=== PATIENT | male | born 1970 | race American Indian/Alaskan Native ===

== ENCOUNTER 2020-12-11 04:28 | Emergency (ER) | payer SELFPAY ==
[2020-12-11 04:56] VITALS: BP 148/87
[2020-12-11] MEDS ORDERED: COLCHICINE 0.6 MG TAB PO ONE (04:57)
[2020-12-11] MEDS ORDERED: predniSONE 20 MG TAB PO ONE (04:57)
--- NOTE | 2020-12-11 05:02 | Emergency Department Report ---
ED General Adult HPI - General Stated complaint: GOUT FLARE IN RT TOE Time Seen by Provider: 12/11/20 04:54 Source: patient, RN notes reviewed Limitations: No Limitations - History of Present Illness Initial comments: Patient 50-year-old -Tong[place] male with a history of gout right toe. Patient presents with pain swelling the same. Patient denies fall injury or trauma. Patient advises being out of colchicine and allopurinol. Patient does have a PCP however could not see PCP today. Pain described as 5/10 aching and soreness. Pain is exacerbated by ambulation palpation and movement. There is been no fevers no chills. - Related Data Previous Rx's Medication Instructions Recorded Last Taken Type HYDROcodone/APAP 5-325 [[place] 1 - 2 each PO Q6HR PRN #20 tablet 12/27/13 Unknown Rx 5/325 mg] Indomethacin 50 mg PO Q8H #40 capsule 12/27/13 Unknown Rx Acetaminophen/Codeine [Tylenol #3] 1 tab PO Q6H PRN #20 tab 04/20/15 Unknown Rx Desoximetasone [Topicort] 1 applicatio TP BID #60 gel..gram. 04/20/15 Unknown Rx Ibuprofen [Motrin] 600 mg PO Q8H PRN #50 tablet 04/20/15 Unknown Rx Sulfamethoxazole/Trimethoprim 1 each PO BID #20 tablet 04/20/15 Unknown Rx [Bactrim Ds] predniSONE [Deltasone] 40 mg PO TID #10 tab 04/20/15 Unknown Rx Colchicine 0.6 mg PO DAILY #10 tablet 07/10/15 Unknown Rx Hydrocortisone 1% [Hydrocortisone 1 applicatio TP TID #1 tube 07/10/15 Unknown Rx 1% CREAM] allopurinoL [Zyloprim] 100 mg PO QDAY #30 tablet 07/10/15 Unknown Rx predniSONE 10 mg PO .TAPER #21 tab 07/10/15 Unknown Rx traMADoL [Ultram 50 MG tab] 50 mg PO Q6HR PRN #20 tablet 07/10/15 Unknown Rx Colchicine 0.6 mg PO BID 7 Days #14 capsule 12/11/20 Unknown Rx predniSONE [Deltasone] 40 mg PO QDAY 5 Days #10 tab 12/11/20 Unknown Rx Allergies Allergy/AdvReac Type Severity Reaction Status Date / Time shellfish derived Allergy Anaphylaxis Verified 08/25/16 11:03 ED Review of Systems ROS: Stated complaint: GOUT FLARE IN RT TOE Other details as noted in HPI Constitutional: denies: chills, fever Eyes: denies: eye pain, eye discharge, vision change ENT: denies: ear pain, throat pain Respiratory: denies: cough, shortness of breath, wheezing Cardiovascular: denies: chest pain, palpitations Endocrine: no symptoms reported Gastrointestinal: denies: abdominal pain, nausea, diarrhea Genitourinary: denies: urgency, dysuria Musculoskeletal: arthralgia, other (right great toe pain swelling ) Skin: denies: rash, lesions Neurological: denies: headache, weakness, paresthesias Psychiatric: denies: anxiety, depression Hematological/Lymphatic: denies: easy bleeding, easy bruising ED Past Medical Hx - Past Medical History Additional medical history: Gout. ECZEMA. OBESITY - Surgical History Additional Surgical History: abd hernia repair - Social History Smoking Status: Former Smoker Substance Use Type: Alcohol - Medications Home Medications: Home Medications Medication Instructions Recorded Confirmed Last Taken Type HYDROcodone/APAP 5-325 [[place] 1 - 2 each PO Q6HR PRN #20 tablet 12/27/13 Unknown Rx 5/325 mg] Indomethacin 50 mg PO Q8H #40 capsule 12/27/13 Unknown Rx Acetaminophen/Codeine [Tylenol #3] 1 tab PO Q6H PRN #20 tab 04/20/15 Unknown Rx Desoximetasone [Topicort] 1 applicatio TP BID #60 gel..gram. 04/20/15 Unknown Rx Ibuprofen [Motrin] 600 mg PO Q8H PRN #50 tablet 04/20/15 Unknown Rx Sulfamethoxazole/Trimethoprim 1 each PO BID #20 tablet 04/20/15 Unknown Rx [Bactrim Ds] predniSONE [Deltasone] 40 mg PO TID #10 tab 04/20/15 Unknown Rx Colchicine 0.6 mg PO DAILY #10 tablet 07/10/15 Unknown Rx Hydrocortisone 1% [Hydrocortisone 1 applicatio TP TID #1 tube 07/10/15 Unknown Rx 1% CREAM] allopurinoL [Zyloprim] 100 mg PO QDAY #30 tablet 07/10/15 Unknown Rx predniSONE 10 mg PO .TAPER #21 tab 07/10/15 Unknown Rx traMADoL [Ultram 50 MG tab] 50 mg PO Q6HR PRN #20 tablet 07/10/15 Unknown Rx Colchicine 0.6 mg PO BID 7 Days #14 capsule 12/11/20 Unknown Rx predniSONE [Deltasone] 40 mg PO QDAY 5 Days #10 tab 12/11/20 Unknown Rx ED Physical Exam - General General appearance: alert, in no apparent distress - Head Head exam: Present: atraumatic, normocephalic - Eye Eye exam: Present: normal appearance, EOMI Pupils: Present: normal accommodation - ENT ENT exam: Present: mucous membranes moist - Neck Neck exam: Present: normal inspection - Respiratory Respiratory exam: Present: normal lung sounds bilaterally. Absent: respiratory distress, wheezes - Cardiovascular Cardiovascular Exam: Present: regular rate, normal rhythm, normal heart sounds. Absent: systolic murmur, diastolic murmur, rubs, gallop - GI/Abdominal GI/Abdominal exam: Present: soft, normal bowel sounds. Absent: distended, tenderness - Rectal Rectal exam: Present: deferred - Extremities Exam Extremities exam: Present: normal inspection, full ROM, tenderness (right great toe ) - Expanded Lower Extremity Exam Right Foot/Toe exam: Present: full ROM, tenderness (right great toe), swelling. Absent: abrasion, laceration, ecchymosis, deformity, crepidus, dislocation, erythema, amputation, puncture wound, foreign body, calcaneal tenderness, tenderness at base of 5th metatarsal, nail avulsion, subungual hematoma Neuro vascular tendon exam: Absent: pulse deficit Gait: Positive: observed and limited by pain - Back Exam Back exam: Present: normal inspection - Neurological Exam Neurological exam: Present: alert, oriented X3, CN II-XII intact, normal gait - Psychiatric Psychiatric exam: Present: normal affect, normal mood - Skin Skin exam: Present: warm, dry, intact, normal color. Absent: rash ED Course Vital Signs 12/11/20 04:33 Temperature 98.2 F Pulse Rate 86 Respiratory 18 Rate Blood Pressure 148/87 O2 Sat by Pulse 97 Oximetry ED Medical Decision Making - Medical Decision Making There is a gout exacerbation plan prednisone short burst, patient will see PCP in 2 days for allopurinol refill. Patient will be DC'd home in stable condition at this time. Critical care attestation.: If time is entered above; I have spent that time in minutes in the direct care of this critically ill patient, excluding procedure time. ED Disposition Clinical Impression: Exacerbation of gout Disposition: DC-01 TO HOME OR SELFCARE Is pt being admited?: No Does the pt Need Aspirin: No Condition: Stable Instructions: Low-Purine Eating Plan Prescriptions: Colchicine 0.6 mg PO BID 7 Days #14 capsule predniSONE [Deltasone] 40 mg PO QDAY 5 Days #10 tab Referrals: SONIA BARNES MD [Staff Physician] - 3-5 Days Forms: Work/School Release Form(ED) Time of Disposition: 05:05
== END 2020-12-11 05:41 | disposition home or self-care (01) ==
LOC: ED 04:28
DX: M10.9 Gout, unspecified (principal); Z87.891 Personal history of nicotine dependence; Z79.899 Other long term (current) drug therapy; Z91.013 Allergy to seafood
CPT/HCPCS: 99282; J7512

== ENCOUNTER 2021-01-24 07:19 | Emergency (ER) | payer SELFPAY ==
--- NOTE | 2021-01-24 08:29 | XRay Report ---
LEFT KNEE 3 VIEW(S) INDICATION / CLINICAL INFORMATION: fall. left knee injury COMPARISON: None available. FINDINGS: BONES / JOINT(S): No acute fracture or subluxation. Mild medial compartment degenerative arthrosis. SOFT TISSUES: Small joint effusion. ADDITIONAL FINDINGS: None. Signer Name: Elvis Francis MD Signed: 01/24/2021 8:25 AM Workstation Name: [email or web address]
[2021-01-24] MEDS ORDERED: IBUPROFEN 800 MG TAB PO ONE (08:38)
--- NOTE | 2021-01-24 08:43 | Emergency Department Report ---
ED Lower Extremity HPI - General Chief Complaint: Extremity Injury, Lower Stated Complaint: KNEE PAIN Source: patient Mode of arrival: Ambulatory Limitations: No Limitations - History of Present Illness Initial Comments: 50-year-old obese male presents to the emergency room stating that yesterday he stepped down from his ladder missed a step injuring his left knee he is complai andrews of left knee pain. Patient states he used ice pack with no improvement he did not take any medication at home. he denies any additional injuries. His past medical history consist of gout eczema,surgical history of abdominal hernia. Patient in no acute distress Injury: Knee: Left (paim) Place: home Improves With: nothing Worsens With: weight bearing, movement Context: other (Missed stepped) Associated Symptoms: ambulatory Treatments Prior to Arrival: cold therapy - Related Data Previous Rx's Medication Instructions Recorded Last Taken Type HYDROcodone/APAP 5-325 [[place] 1 - 2 each PO Q6HR PRN #20 tablet 12/27/13 Unknown Rx 5/325 mg] Indomethacin 50 mg PO Q8H #40 capsule 12/27/13 Unknown Rx Acetaminophen/Codeine [Tylenol #3] 1 tab PO Q6H PRN #20 tab 04/20/15 Unknown Rx Desoximetasone [Topicort] 1 applicatio TP BID #60 gel..gram. 04/20/15 Unknown Rx Ibuprofen [Motrin] 600 mg PO Q8H PRN #50 tablet 04/20/15 Unknown Rx Sulfamethoxazole/Trimethoprim 1 each PO BID #20 tablet 04/20/15 Unknown Rx [Bactrim Ds] predniSONE [Deltasone] 40 mg PO TID #10 tab 04/20/15 Unknown Rx Colchicine 0.6 mg PO DAILY #10 tablet 07/10/15 Unknown Rx Hydrocortisone 1% [Hydrocortisone 1 applicatio TP TID #1 tube 07/10/15 Unknown Rx 1% CREAM] allopurinoL [Zyloprim] 100 mg PO QDAY #30 tablet 07/10/15 Unknown Rx predniSONE 10 mg PO .TAPER #21 tab 07/10/15 Unknown Rx traMADoL [Ultram 50 MG tab] 50 mg PO Q6HR PRN #20 tablet 07/10/15 Unknown Rx Colchicine 0.6 mg PO BID 7 Days #14 capsule 12/11/20 Unknown Rx predniSONE [Deltasone] 40 mg PO QDAY 5 Days #10 tab 12/11/20 Unknown Rx Ibuprofen [Motrin] 600 mg PO Q8H PRN #20 tablet 01/24/21 Unknown Rx Allergies Allergy/AdvReac Type Severity Reaction Status Date / Time shellfish derived Allergy Anaphylaxis Verified 08/25/16 11:03 ED Review of Systems ROS: Stated complaint: KNEE PAIN Other details as noted in HPI Comment: All other systems reviewed and negative Constitutional: denies: chills, fever ENT: denies: ear pain, throat pain, dental pain, hearing loss Respiratory: denies: cough Cardiovascular: denies: chest pain, palpitations, dyspnea on exertion, edema Endocrine: denies: excessive sweating, intolerance to cold Gastrointestinal: denies: abdominal pain, nausea, vomiting Genitourinary: denies: dysuria Musculoskeletal: other (Left knee pain) Skin: denies: rash, lesions, change in color, change in hair/nails Neurological: denies: headache, weakness Psychiatric: denies: anxiety, depression ED Past Medical Hx - Past Medical History Previous Medical History?: Yes Additional medical history: Gout. ECZEMA. OBESITY - Surgical History Past Surgical History?: Yes Additional Surgical History: abd hernia repair - Social History Smoking Status: Current Every Day Smoker Substance Use Type: Alcohol, Prescribed - Medications Home Medications: Home Medications Medication Instructions Recorded Confirmed Last Taken Type HYDROcodone/APAP 5-325 [[place] 1 - 2 each PO Q6HR PRN #20 tablet 12/27/13 Unknown Rx 5/325 mg] Indomethacin 50 mg PO Q8H #40 capsule 12/27/13 Unknown Rx Acetaminophen/Codeine [Tylenol #3] 1 tab PO Q6H PRN #20 tab 04/20/15 Unknown Rx Desoximetasone [Topicort] 1 applicatio TP BID #60 gel..gram. 04/20/15 Unknown Rx Ibuprofen [Motrin] 600 mg PO Q8H PRN #50 tablet 04/20/15 Unknown Rx Sulfamethoxazole/Trimethoprim 1 each PO BID #20 tablet 04/20/15 Unknown Rx [Bactrim Ds] predniSONE [Deltasone] 40 mg PO TID #10 tab 04/20/15 Unknown Rx Colchicine 0.6 mg PO DAILY #10 tablet 07/10/15 Unknown Rx Hydrocortisone 1% [Hydrocortisone 1 applicatio TP TID #1 tube 07/10/15 Unknown Rx 1% CREAM] allopurinoL [Zyloprim] 100 mg PO QDAY #30 tablet 07/10/15 Unknown Rx predniSONE 10 mg PO .TAPER #21 tab 07/10/15 Unknown Rx traMADoL [Ultram 50 MG tab] 50 mg PO Q6HR PRN #20 tablet 07/10/15 Unknown Rx Colchicine 0.6 mg PO BID 7 Days #14 capsule 12/11/20 Unknown Rx predniSONE [Deltasone] 40 mg PO QDAY 5 Days #10 tab 12/11/20 Unknown Rx Ibuprofen [Motrin] 600 mg PO Q8H PRN #20 tablet 01/24/21 Unknown Rx ED Physical Exam - General Limitations: No Limitations General appearance: alert, in no apparent distress - Head Head exam: Present: atraumatic - Eye Eye exam: Present: normal appearance - ENT ENT exam: Present: normal exam - Neck Neck exam: Present: normal inspection - Respiratory Respiratory exam: Present: normal lung sounds bilaterally - Cardiovascular Cardiovascular Exam: Present: regular rate, normal heart sounds - Extremities Exam Extremities exam: Present: normal inspection, tenderness (Tenderness with palpation over anterior knee distal pulses intact). Absent: full ROM, pedal edema, joint swelling, calf tenderness - Neurological Exam Neurological exam: Present: alert, oriented X3 - Psychiatric Psychiatric exam: Present: normal affect ED Course Vital Signs 01/24/21 07:25 Temperature 98.2 F Pulse Rate 80 Respiratory 20 Rate Blood Pressure 134/84 O2 Sat by Pulse 96 Oximetry - Reevaluation(s) Reevaluation #1: 01/24/21 08:45 X-ray results reviewed with the patient no acute fracture or dislocation patient in no acute distress follow-up plan discussed with patient ED Lower Extremity MDM - Radiology Data Radiology results: report reviewed Fluoro Time In Minutes: LEFT KNEE 3 VIEW(S) INDICATION / CLINICAL INFORMATION: fall. left knee injury COMPARISON: None available. FINDINGS: BONES / JOINT(S): No acute fracture or subluxation. Mild medial compartment degenerative arthrosis. SOFT TISSUES: Small joint effusion. ADDITIONAL FINDINGS: None. - Medical Decision Making 50-year-old male presents to the emergency room with complaint of left knee pain after missing his step of the ladder yesterday morning. He denied any other injuries or falls or trauma on examination his left knee has no swelling no bruising skins intact no deformity. There is tenderness over the anterior knee with palpation. Distal pulses are intact. X-ray results discussed with patient. I also discussed with patient additional follow-up with orthopedic doctor if he continued pain or inability to walk or any worsening symptoms to further evaluate for any tendon injury. Patient agrees with plan of care to be discharged home rice instructions, Darren wrap for support ,NSAIDs for pain management and follow-up with orthopedist - Differential Diagnosis Knee sprain knee strain Critical care attestation.: If time is entered above; I have spent that time in minutes in the direct care of this critically ill patient, excluding procedure time. ED Disposition Clinical Impression: Strain of left knee Qualifiers: Encounter type: initial encounter Qualified Code(s): S86.912A - Strain of unspecified muscle(s) and tendon(s) at lower leg level, left leg, initial encounter Disposition: TO HOME OR SELFCARE Is pt being admited?: No Does the pt Need Aspirin: No Condition: Stable Instructions: Muscle Strain, [id number] Additional Instructions: Rest ice elevate and compression to the left knee. Take ibuprofen 600 mg as prescribed for pain. Follow-up with your PCP or with Dr. Padilla if no improvement or ongoing symptoms or worsening worsening symptoms Prescriptions: Ibuprofen [Motrin] 600 mg PO Q8H PRN #20 tablet PRN Reason: Pain Referrals: PRIMARY CAREMD [Primary Care Provider] - 3-5 Days TOMER PADILLA MD [Staff Physician] - 3-5 Days Forms: Work/School Release Form Time of Disposition: 08:52
[2021-01-24 08:52] VITALS: BP 145/85
== END 2021-01-24 09:07 | disposition home or self-care (01) ==
LOC: ED 07:19
DX: S86.912A Strain of unspecified muscle(s) and tendon(s) at lower leg level, left leg, initial encounter (principal); F17.200 Nicotine dependence, unspecified, uncomplicated; E66.9 Obesity, unspecified; M10.9 Gout, unspecified; Z98.890 Other specified postprocedural states; Z91.013 Allergy to seafood; Z79.899 Other long term (current) drug therapy; W11.XXXA Fall on and from ladder, initial encounter; Y93.89 Activity, other specified; Y92.239 Unspecified place in hospital as the place of occurrence of the external cause; Y99.8 Other external cause status

== ENCOUNTER 2021-11-13 01:23 | Emergency (ER) | payer SELFPAY ==
--- NOTE | 2021-11-13 07:42 | Emergency Department Report ---
ED Extremity Problem HPI - General Chief complaint: Extremity Injury, Lower Stated complaint: Gout flare-up Source: patient Mode of arrival: Ambulatory Limitations: No Limitations - History of Present Illness Initial comments: 51-year-old male with a past medical history of gout presents to the ER today with complaints of a flareup to his left great toe. Onset last night. Patient thinks that it may have been triggered by him eating red meat and drinking alcohol over the holidays. He states that he used to be on allopurinol, but he has not been on it "in a while". He denies any known injury. He reports pain on palpation and movement of the great toe. He reports no bruising, erythema or any other symptoms at this time. MD Complaint: joint swelling, joint paint, other (Gout flare) -: Last night Severity scale (0 -10): 10 - Related Data Previous Rx's Medication Instructions Recorded Last Taken Type Acetaminophen/Codeine [Tylenol 1 tab PO Q4HR PRN #12 tablet 11/13/21 Unknown Rx /Codeine # 3 tab] allopurinoL [Zyloprim] 100 mg PO BID #60 tablet 11/13/21 Unknown Rx methylPREDNISolone [Medrol 4MG 4 mg PO DAILY #1 pack 11/13/21 Unknown Rx DOSEPAK (21 tabs)] Allergies Allergy/AdvReac Type Severity Reaction Status Date / Time shellfish derived Allergy Anaphylaxis Verified 08/25/16 11:03 ED Review of Systems ROS: Stated complaint: Gout flare-up Other details as noted in HPI Comment: All other systems reviewed and negative Musculoskeletal: joint swelling, arthralgia ED Past Medical Hx - Past Medical History Previous Medical History?: Yes Additional medical history: Gout. ECZEMA. OBESITY - Surgical History Past Surgical History?: Yes Additional Surgical History: abd hernia repair - Social History Smoking Status: Current Every Day Smoker Substance Use Type: Alcohol, Prescribed - Medications Home Medications: Home Medications Medication Instructions Recorded Confirmed Last Taken Type Acetaminophen/Codeine [Tylenol 1 tab PO Q4HR PRN #12 tablet 11/13/21 Unknown Rx /Codeine # 3 tab] allopurinoL [Zyloprim] 100 mg PO BID #60 tablet 11/13/21 Unknown Rx methylPREDNISolone [Medrol 4MG 4 mg PO DAILY #1 pack 11/13/21 Unknown Rx DOSEPAK (21 tabs)] ED Physical Exam - General Limitations: No Limitations General appearance: alert, in no apparent distress - Head Head exam: Present: atraumatic, normocephalic, normal inspection - Eye Eye exam: Present: normal appearance, PERRL, EOMI Pupils: Present: normal accommodation - Respiratory Respiratory exam: Present: normal lung sounds bilaterally. Absent: respiratory distress, wheezes, rales, rhonchi - Cardiovascular Cardiovascular Exam: Present: regular rate, normal rhythm, normal heart sounds - Extremities Exam Extremities exam: Present: full ROM, tenderness (Exquisite tenderness to palpation to the first MTP joint of the left foot.), normal capillary refill, joint swelling (Mild swelling noted to the first MTP joint of the left foot.), other (No apparent erythema but there is slight warmth along the MTP joint, the first one of the left foot.). Absent: pedal edema - Neurological Exam Neurological exam: Present: alert, oriented X3, CN II-XII intact, normal gait - Psychiatric Psychiatric exam: Present: normal affect, normal mood - Skin Skin exam: Present: intact ED Course Vital Signs 11/13/21 11/13/21 11/13/21 04:24 08:12 08:26 Temperature 98.4 F 98.4 F Pulse Rate 67 75 Respiratory 18 18 20 Rate Blood Pressure 172/101 145/92 [Right] O2 Sat by Pulse 99 99 Oximetry Critical care attestation.: If time is entered above; I have spent that time in minutes in the direct care of this critically ill patient, excluding procedure time. ED Disposition Clinical Impression: Acute gout Disposition: 01 HOME / SELF CARE / HOMELESS Is pt being admited?: No Does the pt Need Aspirin: No Condition: Stable Instructions: Low-Purine Eating Plan Additional Instructions: I recommend that you take the prednisone, and the Tylenol threes as prescribed. After your flareup subsides, I recommend that you start taking allopurinol. Follow-up with your primary care doctor. Return to the ER if your symptoms worsens or changes in any way. Prescriptions: methylPREDNISolone [Medrol 4MG DOSEPAK (21 tabs)] 4 mg PO DAILY #1 pack Acetaminophen/Codeine [Tylenol /Codeine # 3 tab] 1 tab PO Q4HR PRN #12 tablet PRN Reason: Pain allopurinoL [Zyloprim] 100 mg PO BID #60 tablet Referrals: PRIMARY CARE, [Primary Care Provider] - 3-5 Days ODEMUYIWA,ABDULFATAI O, MD [Staff Physician] - 3-5 Days Forms: Work/School Release Form(ED) Time of Disposition: 07:43
[2021-11-13] MEDS ORDERED: dexAMETHasone 20 MG/5 ML VIAL IM ONE (07:44)
[2021-11-13] MEDS ORDERED: KETOROLAC 60 MG/2 ML INJ IM ONE (07:44)
[2021-11-13 08:13] VITALS: BP 145/92
== END 2021-11-13 08:33 | disposition home or self-care (01) ==
LOC: ED 01:23
DX: M10.9 Gout, unspecified (principal); F17.200 Nicotine dependence, unspecified, uncomplicated
CPT/HCPCS: 96372; 99282; J1100; J1885

== ENCOUNTER 2022-06-27 08:27 | Emergency (ER) | payer SELFPAY ==
[2022-06-27 08:53] VITALS: BP 129/88
[2022-06-27] MEDS ORDERED: dexAMETHasone 20 MG/5 ML VIAL IM ONE (10:24)
--- NOTE | 2022-06-27 10:29 | Emergency Department Report ---
ED Rash HPI - HPI Chief Complaint: Extremity Problem,Nontraumatic Stated Complaint: LUMP ON WRIST, BAD EZCENNA FLARE ALL OVER BODY Time Seen by Provider: 06/27/22 10:22 Duration: >1week Location: Head, Neck, Chest, Back, Abdomen, Upper Extremities, Lower Extremities Suspected Cause: Other (Stress) Rash Symptoms: Yes Itching, No Facial Swelling, No Tongue/Oral Swelling, No Breathing Difficulties, No Choking Sensation, No Wheezing/Dyspnea, No Peeling, No Blistering, No Fever, No Lightheaded, No Malaise, No Myalgias Severity: moderate Other History: 51-year-old male with history of eczema presenting with generalized eczema flare. Patient reports that symptoms started little over a week ago, progressively gotten worse. States he thinks his triggers as a result of stress, and environment. No fever, no nausea vomiting, no chest pain, no headache, no dizziness, no vision changes, ED Review of Systems ROS: Stated complaint: LUMP ON WRIST, BAD EZCENNA FLARE ALL OVER BODY Other details as noted in HPI Constitutional: no symptoms reported Eyes: as per HPI Respiratory: denies: cough, orthopnea Cardiovascular: denies: chest pain, palpitations Endocrine: denies: flushing, intolerance to cold, intolerance to heat Gastrointestinal: denies: abdominal pain, nausea, vomiting Musculoskeletal: denies: back pain Skin: rash, lesions, pruritus Neurological: denies: headache, weakness, numbness, paresthesias ED Past Medical Hx - Past Medical History Previous Medical History?: Yes Additional medical history: Gout. ECZEMA. OBESITY - Surgical History Additional Surgical History: abd hernia repair - Social History Smoking Status: Current Every Day Smoker Substance Use Type: Alcohol, Prescribed - Medications Home Medications: Home Medications Medication Instructions Recorded Confirmed Last Taken Type Acetaminophen/Codeine [Tylenol 1 tab PO Q4HR PRN #12 tablet 11/13/21 Unknown Rx /Codeine # 3 tab] allopurinoL [Zyloprim] 100 mg PO BID #60 tablet 11/13/21 Unknown Rx Triamcinolone Acetonide 120 ml TP BID #1 06/27/22 Unknown Rx [Triamcinolone 0.1% LOTION] methylPREDNISolone [Medrol 4MG 4 mg PO DAILY #1 pack 06/27/22 Unknown Rx DOSEPAK (21 tabs)] Rash Exam - Exam General: Vital signs noted. No distress. Alert and acting appropriately. Lungs clear bilaterally, patient has diffuse lichenified skin lesions with areas of excoriation to his scalp, neck, trunk upper lower extremities HEENT: No Periorbital Edema, No Conjuctival Injection, No Chemosis, No Perioral Edema, No Tongue Edema, No Uvular Edema, No Compromised Airway, No Drooling Lungs: Yes Good Air Exchange, No Wheezes, No Ronchi, No Stridor, No Cough, No Labored Respirations, No Retractions, No Use of Accessory Muscles, No Other Abnormal Lung Sounds Heart: Yes Regular, No Murmur Skin: Yes Excoriations, Yes Erythema, No Urticarial Rash, No Maculopapular Rash, No Morbilliform rash, No Bulla(e), No Weeping, No Tenderness, No Edema, No Encrustations, No Other ED Course Vital Signs 06/27/22 08:48 Temperature 98.4 F Pulse Rate 74 Respiratory 18 Rate Blood Pressure 129/88 [Right] O2 Sat by Pulse 100 Oximetry ED Medical Decision Making - Medical Decision Making 51-year-old male with history of eczema presenting with generalized eczema flare. Patient reports that symptoms started little over a week ago, progressively gotten worse. States he thinks his triggers as a result of stress, and environment. No fever, no nausea vomiting, no chest pain, no headache, no dizziness, no vision changes, Vital signs are stable, patient's exam consistent with his dermatitis flare, treated with steroids, will send home with s topical cream, Medrol pack, dermatology referral . Patient remained stable nontoxic-appearing, afebrile, ambulating steadily without assistance. Gone over ED findings with patient as well as plan for follow-up. Also discussed return precautions with patient, all questions and concerns addressed. Patient is stable to be discharged follow-up outpatient. Audio voice dictation device used, hence the chart might contain some dictation errors, mispronunciations, wrong spelling and wrong verbiage. Critical care attestation.: If time is entered above; I have spent that time in minutes in the direct care of this critically ill patient, excluding procedure time. ED Disposition Clinical Impression: Atopic dermatitis, Eczema Disposition: HOME / SELF CARE / HOMELESS Is pt being admited?: No Does the pt Need Aspirin: No Condition: Stable Instructions: Eczema Prescriptions: methylPREDNISolone [Medrol 4MG DOSEPAK (21 tabs)] 4 mg PO DAILY #1 pack Triamcinolone Acetonide [Triamcinolone 0.1% LOTION] 120 ml TP BID #1 Forms: Work/School Release Form(ED)
== END 2022-06-27 11:09 | disposition home or self-care (01) ==
LOC: ED 08:27
DX: L20.9 Atopic dermatitis, unspecified (principal); L30.9 Dermatitis, unspecified; M10.9 Gout, unspecified; F17.200 Nicotine dependence, unspecified, uncomplicated; Z72.89 Other problems related to lifestyle; Z79.899 Other long term (current) drug therapy; Z91.013 Allergy to seafood
CPT/HCPCS: 96372; 99282; J1100